=== PATIENT | male | born 1980 | race Two or more races ===

== ENCOUNTER 2020-02-19 16:59 | Emergency (ER) | payer OTHER ==
[~2020-02-19] VITALS: Ht 193 cm; Wt 147.4 kg
--- NOTE | 2020-02-19 17:10 | NUR ---
DARWIND at the bedside speaking to Pt.
--- NOTE | 2020-02-19 17:31 | NUR ---
Dr Zavala at the bedside for MSE.
[2020-02-19] MEDS ORDERED: IBUPROFEN 800 MG TABLET ONE (17:42)
[2020-02-19] MEDS ORDERED: IBUPROFEN 800 MG TABLET PO ONE (17:45)
--- NOTE | 2020-02-19 18:00 | NUR ---
Called [facility] ambulance for transfer to [facility] for CT, ETA 5 -6 hours. Relay the info to Dr Zavala and Pt. Dr Zavala stated he will order Xrays instead at this time.
--- NOTE | 2020-02-19 19:00 | NUR ---
Patient taken to radiology department at this time
--- NOTE | 2020-02-19 19:03 | NUR ---
Hands off report given to Shonda [facility] [employer].
--- NOTE | 2020-02-19 19:24 | NUR ---
Patient arrived from radiology department
--- NOTE | 2020-02-19 20:27 | NUR ---
Patient left to radiology department for CT
--- NOTE | 2020-02-19 21:12 | NUR ---
Patient discharged to home in stable condition. No signs of acute distress noted, took all belongings, Rx given, Written and verbal after care instructions given. States a friend will pick him up from ER lobby. Patient verbalizes understanding of instructions. Stressed follow up or return to ER for worsening s/s.
[2020-02-19 21:15] VITALS: BP 156/89
== END 2020-02-19 21:15 | disposition home or self-care (01) ==
LOC: ER 17:05
DX: S16.1XXA Strain of muscle, fascia and tendon at neck level, initial encounter (principal); V43.53XA Car driver injured in collision with pick-up truck in traffic accident, initial encounter; Y92.410 Unspecified street and highway as the place of occurrence of the external cause; E66.9 Obesity, unspecified; Z68.39 Body mass index [BMI] 39.0-39.9, adult; M54.5 Low back pain
CPT/HCPCS: 72050; 72110; 72125; A4663